=== PATIENT | female | born 1955 | race Caucasian/White ===

== ENCOUNTER 2020-01-18 07:44 | Day surgery (SDC) | payer OTHER ==
[~2020-01-18] VITALS: Ht 149.9 cm; Wt 64.0 kg
[~2020-01-18 07:44] MED LIST: CeFAZolin 2 GM/DEXTROSE 50 ML IV ONE; MetroNIDAZOLE 500 MG/NACL 100 ML IV ONE; NAPR-1126 PO
[2020-01-18] MEDS ORDERED: ONDANSETRON HCL 4 MG/2 ML VIAL IVP ONE (07:45)
[2020-01-18] MEDS ORDERED: KETOROLAC TROMETHAMINE 60 MG/2 ML VIAL IM ONE (07:45)
[2020-01-18] MEDS ORDERED: DEXAMETHASONE SOD PHOS 4 MG/ML VIAL IVP ONE (07:45)
[2020-01-18] MEDS ORDERED: MIDAZOLAM HCL 2 MG/2 ML VIAL IVP ONE (07:45)
[2020-01-18] MEDS ORDERED: PROPOFOL 1% 20 ML VIAL IVP ONE (07:45)
[2020-01-18] MEDS ORDERED: SUCCINYLCHOLINE CHLORIDE 20 MG/ML 10 ML VIAL IVP ONE (07:45)
[2020-01-18] MEDS ORDERED: FentaNYL CITRATE-PF 100 MCG/2 ML VIAL IVP ONE (07:45)
[2020-01-18] MEDS ORDERED: LIDOCAINE/PF 2% 5 ML VIAL IM ONE (07:45)
[2020-01-18] MEDS ORDERED: CeFAZolin 2 GM/DEXTROSE 50 ML IV ONE (07:55)
[2020-01-18] MEDS ORDERED: RINGERS SOLUTION,LACTATED 1,000 ML IV ONE ×2 (07:55→08:00)
[2020-01-18 08:31] LABS: BASOPHILS % (AUTO) 0.3 % (0.0-2.0); HEMATOCRIT 43.7 % (36-46); HEMOGLOBIN 14.4 g/dL (12.0-16.0); LYMPHOCYTES # (AUTO) 2.7 K/uL (1.0-4.8); MEAN CORPUSCULAR HEMOGLOBIN 28.5 pg (26.0-34.0); MEAN CORPUSCULAR VOLUME 86 fL (80-100); MONOCYTES # (AUTO) 0.4 K/uL (0.1-1.0); MONOCYTES % (AUTO) 6.5 % (2.0-9.0); NEUTROPHILS # (AUTO) 3.3 K/uL (1.8-7.7); NEUTROPHILS % (AUTO) 51.2 % (40.0-70.0); PLATELET COUNT (AUTO) 243 K/uL (150-450); RED BLOOD CELL COUNT(AUTO) 5.07 MIL/uL (4.00-5.20); RED CELL DISTRIBUTION WIDTH 13.5 % (11.5-14.5)
[2020-01-18] MEDS ORDERED: BUPIVACAINE HCL/PF 0.5% 30 ML VIAL ONE (08:38)
[2020-01-18] MEDS ORDERED: LIDOCAINE 2%/EPI 1:200,000/PF 20 ML VIAL ONE (08:38)
[2020-01-18] MEDS ORDERED: HYDROGEN PEROXIDE 473 ML SOLUTION ONE (08:38)
[2020-01-18] MEDS ORDERED: INDIGOTINDISULFONATE SODIUM IM ONE (08:45)
[2020-01-18] MEDS ORDERED: GELATIN SPONGE,ABSORBABLE 100 MM TP ONE (09:03)
[2020-01-18 09:18] LABS: ANION GAP 7 mmol/L (8-16); CALCIUM, TOTAL 9.3 mg/dL (8.8-10.5); CARBON DIOXIDE 30 mmol/L (22-29); CHLORIDE 105 mmol/L (98-107); CREATININE 0.76 mg/dL (0.60-1.30); GLOMERULAR FILTR. RATE CALC > 60 mL/min (>60); GLUCOSE,RANDOM 107 mg/dL (70-110); SODIUM SERUM 142 mmol/L (136-145); UREA NITROGEN, BLOOD 15 mg/dL (7-18)
[2020-01-18] MEDS ORDERED: IBUPROFEN 800 MG TABLET PO PRN (09:45)
[2020-01-18] MEDS ORDERED: HYDROCODONE/ACETAMINOPHEN 5-325 MG TABLET PO PRN (09:45)
[2020-01-18] MEDS ORDERED: ACETAMINOPHEN 500 MG TABLET PO PRN (09:45)
[2020-01-18] MEDS ORDERED: MetroNIDAZOLE 500 MG/NACL 100 ML IV ONE (10:11)
[2020-01-18] MEDS ORDERED: MEPERIDINE-PF 25 MG/ML VIAL IVP PRN (10:15)
[2020-01-18] MEDS ORDERED: HYDROmorphone 2 MG/ML SYRINGE ONE (10:33)
[2020-01-18] MEDS ORDERED: RINGERS SOLUTION,LACTATED 500 ML IV ONE (10:35)
[2020-01-18] MEDS ORDERED: HYDROmorphone 2 MG/ML SYRINGE IVP STA (10:38)
== END 2020-01-18 12:40 | disposition home or self-care (01) ==
LOC: SURGERY 07:44
PROVIDERS: ATTEND Surgery
DX: K60.3 Anal fistula (principal); Z98.890 Other specified postprocedural states; Z79.899 Other long term (current) drug therapy; Z82.49 Family history of ischemic heart disease and other diseases of the circulatory system; Z83.3 Family history of diabetes mellitus; Z80.9 Family history of malignant neoplasm, unspecified
CPT/HCPCS: 36415; 46270; 80048; 85025; 88304; 93005; J0330; J0690; J1100; J1170; J1885; J2250; J2405; J2704; J3010; J3490 ×3; J7120 ×2